=== PATIENT | male | born 1970 ===

== ENCOUNTER 2018-11-03 17:28 | Emergency (ER) | payer MEDICAID ==
[~2018-11-03] VITALS: Ht 180.3 cm; Wt 88.5 kg
[2018-11-03] MEDS ORDERED: Keflex500 MG PO (21:45)
== END 2018-11-03 22:08 | disposition home or self-care (01) ==
LOC: ER 17:28
DX: S56.922A Laceration of unspecified muscles, fascia and tendons at forearm level, left arm, initial encounter (principal); W29.3XXA Contact with powered garden and outdoor hand tools and machinery, initial encounter; Y93.H2 Activity, gardening and landscaping
CPT/HCPCS: 12032; 90471; 90714; 99282-25